=== PATIENT | male | born 1940 | race Caucasian/White ===

== ENCOUNTER 2018-08-09 13:07 | Emergency (ER) | payer MEDICARE, OTHER, SELFPAY ==
[2018-08-09] VITALS (50 sets, daily range): BP systolic 138–177; BP diastolic 78–132; PULSE 60–79; RESP 13–28; TEMP 36.4; O2SAT 87–98
--- NOTE | 2018-08-09 13:18 | DI.RAD_ITS ---
SYMPTOM/DIAGNOSIS: CHEST PAIN PORTABLE CHEST: There are no prior comparison exams. The heart size is within normal limits. The aorta shows mild calcification and mild tortuosity. There are mildly increased interstitial changes. No acute infiltrate, effusion or pulmonary edema seen. An IVC filter is noted. IMPRESSION: No acute abnormality.
--- NOTE | 2018-08-09 13:29 | DI.CT_ITS ---
SYMPTOMS/DIAGNOSIS: SYNCOPE, H/O CLOTS, HAS FILTER, NON-ST ELEVATION MYOCARDIAL INFARCTION CHEST CT FOR PULMONARY EMBOLISM: CT angiography was performed with multi slice acquisition and multi planar and 3D reconstruction. Comparison is made with a chest x-ray performed earlier the same day. Images were performed from the clavicles through the lung bases according to the pulmonary embolism protocol. There are no pulmonary emboli or evidence of aortic dissection. There is prominence of the main and pulmonary artery branch vessels, which could indicate pulmonary hypertension. The aorta shows mild calcification. There are coronary artery calcifications. There is no evidence of aortic dissection. No mass, adenopathy or pulmonary nodules are seen. There are mildly increased ground-glass opacities in the upper lobes, which could indicate alveolitis. There are mildly increased interstitial changes. On the images of the upper abdomen, a large left renal cyst is visible. An IVC filter is seen with the tip at the level of the diaphragm. There is a mild compression of the inferior endplate of T12. IMPRESSION: No evidence of pulmonary emboli. There are upper lobe ground- glass opacities, which could indicate alveolitis. There are mild underlying interstitial changes.
[2018-08-09 13:30] LABS: Abs Immature Grans 0.01 k/cumm (0.0-0.09); Absolute Basophil Count 0.01 k/cumm (0.0-0.2); Absolute Eosinophil Count 0.09 k/cumm (0.0-0.7); Absolute Lymphocyte Count 0.61 k/cumm (1.2-3.4); Absolute Monocyte Count 0.39 k/cumm (0.11-0.7); Absolute Neutrophil Count 4.17 k/cumm (1.2-6.7); Basophils % 0.2; Eosinophils % 1.7; HCT 43.6 % (40.0-50.0); HGB 14.7 g/dL (13.5-17.5); Immature Grans % 0.2; Lymphocytes % 11.6; Mean Corp. HGB Concentration 33.7 g/dL (32.0-36.0); Mean Corpuscular Hemoglobin 29.1 pg (27.0-33.0); Mean Corpuscular Volume 86.3 fL (80-95); Mean Platelet Volume 9.5 fL (8.0-11.0); Monocytes % 7.4; Neutrophils % 78.9; Platelet Count 159 x1000/uL (130-400); RBC 5.05 m/cumm (4.50-6.00); RBC Distribution Width 14.8 % (11.8-14.1); White Blood Cell Count 5.28 k/cumm (4.4-10.8)
--- NOTE | 2018-08-09 13:33 | W.ED.GENAD ---
Discharge Plan Disposition Patient Disposition: CADEN HARRY ([facility]) Condition: Stable Discharge Details Chief Complaint: Dizzy/Sync Clinical Impression: ACS (acute coronary syndrome), Near syncope Primary Care Provider: ELPIDIO,LOCAL ED Provider: Jens Ulrich Home Meds and New Rx's Prescriptions: No Action warfarin 7.5 mg Tablet 7.5 mg PO .//// RF: 0 aspirin [Aspir-81] 81 mg Tablet,Delayed Release (Dr/Ec) 81 mg PO DAILY RF: 0 simvastatin 40 mg Tablet 40 mg PO DAILY RF: 0 warfarin 5 mg Tablet 5 mg PO .SAT/SUN RF: 0 Medical Decision Making MDM Narrative Medical decision making narrative: This is a 78-year-old male with a past medical history of blood clots Coumadin use, Latesha filter, ACS with coronary artery disease, tobacco abuse, and high cholesterol who presents today for near syncope. Initial EKG performed by EMS showed ST depressions in the anterior lateral leads, he was given nitroglycerin and this improved his ST changes. Currently he has no pain or symptoms whatsoever, EKG continues to demonstrate some ST depression notable in the anterior leads of V1 and V2 V3. Posterior EKG was performed For concern of a posterior myocardial infarction and this demonstrates no significant ST elevation in the posterior lateral leads. We will start the patient on heparin with his dynamic EKG changes, give him aspirin. This history of PEs we will get a CT angiogram to evaluate for any acute proximal PE as a cause for his associated near syncope. EKG 1:10 PM Rate 70, OH 146, QTc 445 QRS 114, sinus rhythm, PVCs are noted. [address] depression in V2 and V3 with associated T-wave inversion. inverted T-wave in V1. No Q waves. No reciprocal ST elevation. EKG 1:25 PM posterior EKG Rate 64, intervals normal, [address] depression in V1 V2 and V3. Inverted T-wave in V1 through V6. V4 V5 and V6 which are the new posterior leads show no ST elevation. No significant ST elevation on EKG Patient CT angiogram has returned and demonstrates no evidence of pulmonary embolism aortic aortic dissection. Per virtual radiology, impression is minimal interstitial lung disease as outlined above with no specific etiology identified the patient's symptoms.. At this time the patient continues to remain asymptomatic however EKG does demonstrate concerning findings with the ST depression noted in the anterior lateral leads. The patient's INR has returned elevated at 5.2, so we are going to hold on his heparin until we consult cardiology at the [facility]. Because of the patient's and STEMI and I do not feel that he is a candidate for admission here, patient is requesting [facility] over [facility]. We will contact them for potential transfer. The patient has been given his aspirin. 5: 15 PM I discussed the case with Dr. Funes of cardiology at the [facility], he agrees with the assessment and plan. They do recommend holding off on heparin at this time secondary to his notably elevated INR they agreed to accept the patient at the [facility] for further management. I have extensively reviewed the treatment plan with the patient. I have addressed all patient concerns at this time. I have also discussed the plan with the admitting physician and they agree with the current assessment and plan and have agreed to assume responsibility for the patient. All parties demonstrate verbal understanding and agreement with our assessment and plan at this time. EKG 4:35 PM Rate 63, OH 150, QTc 454, QRS 110, occasional PACs. T-wave inversion in V1 V2 and V3, [address] depression in V2 and V3. Inverted T waves noted in lead II and lead III as well as aVF 5:54 PM The patient's second troponin has returned does demonstrate 0.04 which is a slight increase from his previous 0.02. This only further enhances my concern for cardiac etiology especially with his EKG findings. Repeat EKG is consistent with prior EKG from today with the ST depression noted in V1 V2 and V3. Initially just prior to transfer did sit down discussed the patient's cardiac history with him again, and on this interview the patient now states that he now does recall getting a stress test just 2 months ago in [place] which was negative at that time per the patient. Regardless I do not think this changes ourcurrent plan as he has notable EKG changes associated with a non-stable troponin that is slowly going up. HPI - General Adult General Date/Time Provider Initiated Documentation: 08/09/18 13:27. HPI Narrative: This is a 78-year-old male with past medical history of hyperlipidemia, blood clots, vena cava filter, pulmonary embolism, as well as a STEMI in 1994, tobacco use, and cardiac history in his family. He presents today for near syncope. The patient states that he was walking up a flight of stairs when he felt like he nearly passed out. He did not become cooler diaphoretic. He denies any chest pain, tearing sensation in his chest, shortness of breath, arm pain, neck pain, shoulder pain. He did not fall, he did not hit his head. He was able to sit down to the ground without any significant complication. EMS was called, and upon arrival they noted that he had ST depression in the anterior lateral leads. He was given a nitroglycerin which led to notable improvement of this ST depression. Initial EKG from EMS showed 1-[address] depression in V2 V3 and V4. The patient had no initial chest pain or pain or shortness of breath, and after nitroglycerin he had no change in his symptoms however his EKG did improve. The patient denies any other complaints at this time. He denies any recent surgeries, any changes to his medication, or any other abnormalities. He denies any recent exertional chest pain, recent shortness of breath. Related Data Home Medications Medication Instructions Recorded Confirmed aspirin [Aspir-81] 81 mg PO DAILY 08/09/18 08/09/18 simvastatin 40 mg PO DAILY 08/09/18 08/09/18 warfarin 5 mg PO .SAT/SUN 08/09/18 08/09/18 warfarin 7.5 mg PO .////08/09/18 08/09/18 Allergies Allergy/AdvReac Type Severity Reaction Status Date / Time shellfish derived Allergy Nausea Unverified 08/09/18 13:08 General Stated Complaint: Dizzy/Sync SHEKHAR: 2 Review of Systems Review of Systems 10 point review of systems was performed, pertinent positives and negatives are noted in the history of present illness. [facility] Social History Smoking/Tobacco Use Status: Former Tobacco Use Exam Narrative Exam Narrative: 1.Const: Well-nourished, Well-developed, appearing stated age 2.Eyes: PERRL, no conjunctival injection, and symmetrical lids. 3.ENT: Atraumatic external nose and ears. Moist MM. Neck: Symmetric, trachea midline, No thyromegaly. Patient demonstrates good movement of cervical neck. There is no nuchal rigidity, no nuchal tenderness. Patient is able to flex the neck without any difficulty or significant pain. Negative Kernig's and Brudzinski sign. 4.CVS: +S1/S2, No murmurs or gallops. Peripheral pulses 2+ and equal in all extremities. Brisk capillary refill in all extremities. Pulses are equal in the radial pulses bilaterally. No reproducible chest pain. No signs of trauma the chest. No significant cardiac murmur. 5.RESP: Unlabored respiratory effort. Clear to auscultation bilaterally. No wheezes rales or rhonchi 6.GI: Soft, Nontender/Nondistended, No hepatosplenomegaly. No guarding or rebound. 7.MSK: Normocephalic/Atraumatic, Extremities w/o deformity or ttp No cyanosis or clubbing, Normal movement of all extremities 8.Skin: Warm, Dry. No rashes or lesions. 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 Sensation grossly intact, no focal neurologic deficits. All 6 cardinal planes of vision or fully intact. No evidence of horizontal or vertical nystagmus. The patient demonstrated a normal vllbsw-othr-wvtwyk, good dexterity. There was no evidence of dysdiadochokinesia. Patient was able to ambulate without difficulty. There was no wide-based gait. Romberg, and voxw-qo-kxwl are both normal on testing. Sensation was intact bilaterally as well as muscle strength bilaterally for all extremities. Patient was able to verbalize butter cup with no slurring, or miss pronunciation. 10.Psych: (AAO) x3. Appropriate mood and affect Course Vital Signs Temperature 36.4 C L 08/09/18 13:09 Pulse 78 08/09/18 13:09 Respiratory Rate 23 08/09/18 13:09 Blood Pressure 164/99 H 08/09/18 13:09 Pulse Oximetry 87 L 08/09/18 13:09 Temperature 36.4 C L 08/09/18 13:09 Pulse 78 08/09/18 13:09 Respiratory Rate 23 08/09/18 13:09 Blood Pressure 164/99 H 08/09/18 13:09 Pulse Oximetry 87 L 08/09/18 13:09
[2018-08-09] MEDS: Normal Saline 1,000 ML 1000 ML IV (13:40)
--- NOTE | 2018-08-09 13:40 | ED.GENADUL_ITS ---
Discharge Plan Disposition Patient Disposition: CADEN HARRY ([facility]) Condition: Stable Discharge Details Chief Complaint: Dizzy/Sync Clinical Impression: ACS (acute coronary syndrome), Near syncope Primary Care Provider: ELPIDIO,LOCAL ED Provider: Jens Ulrich Home Meds and New Rx's Prescriptions: No Action warfarin 7.5 mg Tablet 7.5 mg PO .//// RF: 0 aspirin [Aspir-81] 81 mg Tablet,Delayed Release (Dr/Ec) 81 mg PO DAILY RF: 0 simvastatin 40 mg Tablet 40 mg PO DAILY RF: 0 warfarin 5 mg Tablet 5 mg PO .SAT/SUN RF: 0 Medical Decision Making MDM Narrative Medical decision making narrative: This is a 78-year-old male with a past medical history of blood clots Coumadin use, Latesha filter, ACS with coronary artery disease, tobacco abuse, and high cholesterol who presents today for near syncope. Initial EKG performed by EMS showed ST depressions in the anterior lateral leads, he was given nitroglycerin and this improved his ST changes. Currently he has no pain or symptoms whatsoever, EKG continues to demonstrate some ST depression notable in the anterior leads of V1 and V2 V3. Posterior EKG was performed For concern of a posterior myocardial infarction and this demonstrates no significant ST elevation in the posterior lateral leads. We will start the patient on heparin with his dynamic EKG changes, give him aspirin. This history of PEs we will get a CT angiogram to evaluate for any acute proximal PE as a cause for his associated near syncope. EKG 1:10 PM Rate 70, OK 146, QTc 445 QRS 114, sinus rhythm, PVCs are noted. [address] depression in V2 and V3 with associated T-wave inversion. inverted T-wave in V1. No Q waves. No reciprocal ST elevation. EKG 1:25 PM posterior EKG Rate 64, intervals normal, [address] depression in V1 V2 and V3. Inverted T-wave in V1 through V6. V4 V5 and V6 which are the new posterior leads show no ST elevation. No significant ST elevation on EKG Patient CT angiogram has returned and demonstrates no evidence of pulmonary embolism aortic aortic dissection. Per virtual radiology, impression is minimal interstitial lung disease as outlined above with no specific etiology identified the patient's symptoms.. At this time the patient continues to remain asymptomatic however EKG does demonstrate concerning findings with the ST depression noted in the anterior lateral leads. The patient's INR has returned elevated at 5.2, so we are going to hold on his heparin until we consult cardiology at the [facility]. Because of the patient's and STEMI and I do not feel that he is a candidate for admission here, patient is requesting [facility] over [facility]. We will contact them for potential transfer. The patient has been given his aspirin. 5: 15 PM I discussed the case with Dr. Funes of cardiology at the [facility] , he agrees with the assessment and plan. They do recommend holding off on heparin at this time secondary to his notably elevated INR they agreed to accept the patient at the [facility] for further management. I have extensively reviewed the treatment plan with the patient. I have addressed all patient concerns at this time. I have also discussed the plan with the admitting physician and they agree with the current assessment and plan and have agreed to assume responsibility for the patient. All parties demonstrate verbal understanding and agreement with our assessment and plan at this time. EKG 4:35 PM Rate 63, OK 150, QTc 454, QRS 110, occasional PACs. T-wave inversion in V1 V2 and V3, [address] depression in V2 and V3. Inverted T waves noted in lead II and lead III as well as aVF 5:54 PM The patient's second troponin has returned does demonstrate 0.04 which is a slight increase from his previous 0.02. This only further enhances my concern for cardiac etiology especially with his EKG findings. Repeat EKG is consistent with prior EKG from today with the ST depression noted in V1 V2 and V3. Initially just prior to transfer did sit down discussed the patient's cardiac history with him again, and on this interview the patient now states that he now does recall getting a stress test just 2 months ago in [place] which was negative at that time per the patient. Regardless I do not think this changes ourcurrent plan as he has notable EKG changes associated with a non -stable troponin that is slowly going up. HPI - General Adult General Date/Time Provider Initiated Documentation: 08/09/18 13:27 . HPI Narrative: This is a 78-year-old male with past medical history of hyperlipidemia, blood clots, vena cava filter, pulmonary embolism, as well as a STEMI in 1994, tobacco use, and cardiac history in his family. He presents today for near syncope. The patient states that he was walking up a flight of stairs when he felt like he nearly passed out. He did not become cooler diaphoretic. He denies any chest pain, tearing sensation in his chest, shortness of breath, arm pain, neck pain, shoulder pain. He did not fall, he did not hit his head. He was able to sit down to the ground without any significant complication. EMS was called, and upon arrival they noted that he had ST depression in the anterior lateral leads. He was given a nitroglycerin which led to notable improvement of this ST depression. Initial EKG from EMS showed 1-[address] depression in V2 V3 and V4. The patient had no initial chest pain or pain or shortness of breath, and after nitroglycerin he had no change in his symptoms however his EKG did improve. The patient denies any other complaints at this time. He denies any recent surgeries, any changes to his medication, or any other abnormalities. He denies any recent exertional chest pain, recent shortness of breath. Related Data Home Medications Medication Instructions Recorded Confirmed aspirin [Aspir-81] 81 mg PO DAILY 08/09/18 08/09/18 simvastatin 40 mg PO DAILY 08/09/18 08/09/18 warfarin 5 mg PO .SAT/SUN 08/09/18 08/09/18 warfarin 7.5 mg PO .////08/09/18 08/09/18 Allergies Allergy/AdvReac Type Severity Reaction Status Date / Time shellfish derived Allergy Nausea Unverified 08/09/18 13:08 General Stated Complaint: Dizzy/Sync SHEKHAR: 2 Review of Systems Review of Systems 10 point review of systems was performed, pertinent positives and negatives are noted in the history of present illness. [facility] Social History Smoking/Tobacco Use Status: Former Tobacco Use Exam Narrative Exam Narrative: 1.Const: Well-nourished, Well-developed, appearing stated age 2.Eyes: PERRL, no conjunctival injection, and symmetrical lids. 3.ENT: Atraumatic external nose and ears. Moist MM. Neck: Symmetric, trachea midline, No thyromegaly. Patient demonstrates good movement of cervical neck. There is no nuchal rigidity, no nuchal tenderness. Patient is able to flex the neck without any difficulty or significant pain. Negative Kernig's and Brudzinski sign. 4.CVS: +S1/S2, No murmurs or gallops. Peripheral pulses 2+ and equal in all extremities. Brisk capillary refill in all extremities. Pulses are equal in the radial pulses bilaterally. No reproducible chest pain. No signs of trauma the chest. No significant cardiac murmur. 5.RESP: Unlabored respiratory effort. Clear to auscultation bilaterally. No wheezes rales or rhonchi 6.GI: Soft, Nontender/Nondistended, No hepatosplenomegaly. No guarding or rebound. 7.MSK: Normocephalic/Atraumatic, Extremities w/o deformity or ttp No cyanosis or clubbing, Normal movement of all extremities 8.Skin: Warm, Dry. No rashes or lesions. 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 Sensation grossly intact, no focal neurologic deficits. All 6 cardinal planes of vision or fully intact. No evidence of horizontal or vertical nystagmus. The patient demonstrated a normal gyaeta-mlfh-ifoeuo, good dexterity. There was no evidence of dysdiadochokinesia. Patient was able to ambulate without difficulty. There was no wide-based gait. Romberg, and atsc-cj-izlz are both normal on testing. Sensation was intact bilaterally as well as muscle strength bilaterally for all extremities. Patient was able to verbalize butter cup with no slurring, or miss pronunciation. 10.Psych: (AAO) x3. Appropriate mood and affect Course Vital Signs Temperature 36.4 C L 08/09/18 13:09 Pulse 78 08/09/18 13:09 Respiratory Rate 23 08/09/18 13:09 Blood Pressure 164/99 H 08/09/18 13:09 Pulse Oximetry 87 L 08/09/18 13:09 Temperature 36.4 C L 08/09/18 13:09 Pulse 78 08/09/18 13:09 Respiratory Rate 23 08/09/18 13:09 Blood Pressure 164/99 H 08/09/18 13:09 Pulse Oximetry 87 L 08/09/18 13:09
[2018-08-09 13:44] LABS: PTT Activated 33.5 sec (21.0-31.4)
[2018-08-09 13:52] LABS: ALT 25 U/L (12-78); AST 31 U/L (15-37); Albumin 3.7 g/dL (3.4-5.0); Alkaline Phosphatase 91 U/L (46-116); Anion Gap 4.6 mmol/L (3-11); BUN 19 mg/dL (7-18); Bilirubin, Total 0.7 mg/dL (0.2-1.0); CO2 27.4 mmol/L (21.0-32.0); CREATININE 0.62 mg/dL (0.70-1.30); Calcium 8.6 mg/dL (8.5-10.1); Chloride 105 mmol/L (98-107); Glucose 88 mg/dL (70-100); Magnesium 2.2 mg/dL (1.8-2.4); Sodium 137 mmol/L (136-145); Total Protein 6.7 g/dL (6.4-8.2)
[2018-08-09 13:53] LABS: Troponin I < 0.02 ng/mL (0.00-0.06)
--- NOTE | 2018-08-09 13:56 | DI.VRAD_ITS ---
EXAM: XR Chest, 1 View EXAM DATE/TIME: 08/09/2018 1:19 PM CLINICAL HISTORY: 78 years old, male; Pain; Chest pain; Type not specified TECHNIQUE: XR of the chest, 1 view. COMPARISON: No relevant prior studies available. FINDINGS: Lungs: Unremarkable. No consolidation. Pleural space: Unremarkable. No pleural effusion. No pneumothorax. Heart/Mediastinum: Cardiac size is normal. Vasculature: Minimal atheromatous plaquing is seen within the aortic arch. Bones/joints: There is diffuse osteopenia. Other findings: The very upper portion of an IVC filter is identified. IMPRESSION: No acute pulmonary disease or acute thoracic findings are detected. Dictated and Authenticated by: Andrew Guerra MD. Ordering:ALEXANDER FUENTES MD
[2018-08-09 14:01] LABS: Prothrombin Time 47.9 sec (9.3-10.8)
[2018-08-09 14:02] LABS: INR 5.2 (1.0-3.5)
[2018-08-09] MEDS: Omnipaque 350 MG/ML 100 ML BTL IJ (14:27)
[2018-08-09] MEDS: Normal Saline 1,000 ML 30 ML IV (14:33)
--- NOTE | 2018-08-09 14:54 | DI.VRAD_ITS ---
EXAM: CT Angiography Chest With Intravenous Contrast CLINICAL HISTORY: 78 years old, male; Pain and signs and symptoms; Other: Syncope; Chest pain; Type not specified; Patient HX: HX of clots, pt has an ivc filter. ; Additional info: 18g. Lt forearm only iv possible on patient. TECHNIQUE: Axial computed tomographic angiography images of the chest with intravenous contrast using pulmonary embolism protocol. All CT scans at this facility use at least one of these dose optimization techniques: automated exposure control; mA and/or kV adjustment per patient size (includes targeted exams where dose is matched to clinical indication); or iterative reconstruction. MIP reconstructed images were created and reviewed. Coronal and sagittal reformatted images were created and reviewed. COMPARISON: [place] - XR PORTABLE CHEST AP 08/09/2018 1:29 PM FINDINGS: Mild interstitial lung disease with minimal areas of groundglass opacity consistent with a chronic alveolitis. No evidence of pulmonary embolism. Inferior vena cava filter within the intrahepatic portion of the inferior vena cava. Incidental 14 cm left renal cyst. IMPRESSION: Minimal interstitial lung disease as outlined above with no other specific etiology identified for patient's symptoms. Dictated and Authenticated by: Deangelo Bowie MD. Ordering:ALEXANDER FUENTES MD
[2018-08-09 16:43] LABS: Bilirubin Negative (Negative); Blood Large (Negative); Clarity Sl Cloudy; Glucose Negative (Negative); Ketones 15 mg/dL (Negative); Leukocyte Esterase Negative (Negative); Nitrite Negative (Negative); Urobilinogen 0.2 EU/dL (Up TO 0.2)
[2018-08-09 16:51] LABS: Troponin I 0.04 ng/mL (0.00-0.06)
[2018-08-09 16:53] LABS: Bacteria Negative HPF (Negative); C & S Indicated? No; Casts Negative LPF (Negative); Crystals Negative HPF (Negative); Epithelial Cells Negative HPF (Negative); Mucus Negative (Negative); Other Cells Negative (Negative); RBC >50 (0-2); WBC Negative HPF (0-5)
== END 2018-08-09 17:53 | disposition short-term general hospital (02) ==
PROVIDERS: Emergency Provider Student in an Organized Health Care Education/Training Program
DX: I24.9 Acute ischemic heart disease, unspecified (principal); R55 Syncope and collapse; R94.31 Abnormal electrocardiogram [ECG] [EKG]; Z86.711 Personal history of pulmonary embolism; R79.1 Abnormal coagulation profile; I25.10 Atherosclerotic heart disease of native coronary artery without angina pectoris
CPT/HCPCS: 36415; 71275; 80053; 93005; 96365; 96366; 96376; 99285; 71045; 81003; 81015; 83735; 84484; 85025; 85610; 85730; 93010; J3490